=== PATIENT | male | born 1930 | race Caucasian/White ===

== ENCOUNTER 2016-06-04 09:54 | Emergency (ER) | payer MEDICARE, OTHER ==
[~2016-06-04] VITALS: Ht 182.9 cm; Wt 100.0 kg
[~2016-06-04 09:54] MED LIST: ASPI81 CHEW; DOXY100T PO; FINA5TAB77 PO; LIPI10TA PO; LISI-363 PO; MECL25CH PO; METO50TA PO; PROT40TA PO; TAB-TAB PO; TAMS0.4C4 PO; TRIA.1%T TOP
[2016-06-04 09:57] VITALS: BP 180/76; PULSE 97; RESP 17; TEMP 97.8; O2SAT 93
[2016-06-04 11:00] VITALS: BP 168/78; PULSE 88; RESP 20; O2SAT 96
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
[2016-06-04 12:32] LABS: AUTOMATED NEUTROPHIL # 7.5 TH/MM3 (1.8-7.7); BASOPHIL % 0.4 % (0.0-2.0); EOSINOPHIL # 0.1 TH/MM3 (0-0.4); EOSINOPHIL % 1.5 % (0.0-4.0); HEMATOCRIT 30.3 % (39.0-51.0); HEMO FLAGS DIFF FINAL; LYMPH % 11.8 % (9.0-44.0); LYMPHOCYTE # 1.1 TH/MM3 (1.0-4.8); MEAN CELL VOLUME 85.1 FL (80.0-100.0); MEAN CORPUSCULAR HEMOGLOBIN 27.4 PG (27.0-34.0); MEAN CORPUSCULAR HGB CONC 32.2 % (32.0-36.0); MONO % 8.6 % (0.0-8.0); NEUT % 77.7 % (16.0-70.0); PLATELET COUNT 201 TH/MM3 (150-450); RED BLOOD COUNT 3.56 MIL/MM3 (4.50-5.90); WHITE BLOOD COUNT 9.7 TH/MM3 (4.0-11.0)
[2016-06-04 12:48] VITALS: BP 158/66; PULSE 55; RESP 20; O2SAT 96
[2016-06-04 12:48] LABS: AMPHETAMINE, URINE NEG (NEG); BARBITURATES, URINE NEG (NEG); COCAINE, URINE NEG (NEG)
[2016-06-04] MEDS ORDERED: MILKSUS PO (12:49)
[2016-06-04] MEDS ORDERED: DICL75TA PO (12:49)
[2016-06-04] MEDS ORDERED: COLA100C3 PO (12:49)
[2016-06-04] MEDS ORDERED: METO50TA PO (12:49)
[2016-06-04] MEDS ORDERED: DAPS1TAB2 PO (12:49)
[2016-06-04] MEDS ORDERED: BENA25TA3 PO (12:49)
[2016-06-04] MEDS ORDERED: FINA5TAB2 PO (12:49)
[2016-06-04] MEDS ORDERED: MORP1TAB24 PO (12:49)
[2016-06-04] MEDS ORDERED: PANT40TA3 PO (12:49)
[2016-06-04] MEDS ORDERED: VITA200012 PO (12:49)
[2016-06-04] MEDS ORDERED: PERC10TA27 PO (12:49)
[2016-06-04] MEDS ORDERED: REST15CA PO (12:49)
[2016-06-04] MEDS ORDERED: PRED20 PO (12:49)
[2016-06-04] MEDS ORDERED: OMEP20TA PO (12:49)
[2016-06-04] MEDS ORDERED: ASPI1TAB69 PO (12:49)
[2016-06-04] MEDS ORDERED: TAMS0.4C4 PO (12:49)
[2016-06-04] MEDS ORDERED: LANO0.1212 PO (12:49)
[2016-06-04] MEDS ORDERED: LISI-519 PO (12:49)
[2016-06-04] MEDS ORDERED: LORA-373 PO (12:49)
[2016-06-04] MEDS ORDERED: VITA500T PO (12:49)
[2016-06-04 13:04] LABS: ANION GAP 7 MEQ/L (5-15); AST (GOT) 22 U/L (15-37); BICARBONATE 26.6 MEQ/L (21.0-32.0); BLOOD UREA NITROGEN 14 MG/DL (7-18); CHLORIDE 107 MEQ/L (98-107); GLOMERULAR FILTRATION RATE 75 ML/MIN (>89); POTASSIUM 4.3 MEQ/L (3.5-5.1); SODIUM (NA) 141 MEQ/L (136-145)
[2016-06-04 13:08] LABS: ALKALINE PHOSPHATASE 103 U/L (45-117); ALT (GPT) 17 U/L (12-78); TOTAL BILIRUBIN ADULT 0.9 MG/DL (0.2-1.0)
[2016-06-04] MEDS ORDERED: HALOPERIDOL 1 MG TAB PO ONE (14:45)
[2016-06-04 15:30] VITALS: BP 160/72; PULSE 58; RESP 17; O2SAT 96
== END 2016-06-04 16:47 | disposition hospice, inpatient (51) ==
LOC: NEPA 09:54
DX: R45.6 Violent behavior (principal); F03.90 Unspecified dementia, unspecified severity, without behavioral disturbance, psychotic disturbance, mood disturbance, and anxiety; R21 Rash and other nonspecific skin eruption; S50.312A Abrasion of left elbow, initial encounter; S90.512A Abrasion, left ankle, initial encounter; I48.91 Unspecified atrial fibrillation; E78.00 Pure hypercholesterolemia, unspecified; I10 Essential (primary) hypertension
CPT/HCPCS: 70450; 71010; 72125; 80053; 80307; 80320; 85025